=== PATIENT | female | born 1990 | race American Indian/Alaskan Native ===

== ENCOUNTER 2017-01-28 05:21 | Emergency (ER) | payer SELFPAY ==
--- NOTE | 2017-01-28 08:00 | Emergency Department Report ---
ED ENT HPI - General Chief complaint: Sore Throat Stated complaint: THROAT PAIN Time Seen by Provider: 01/28/17 07:21 Source: patient Mode of arrival: Ambulatory Limitations: No Limitations - History of Present Illness Initial comments: PT c/o Sore throat. PT states she has had a sore throat x 2 days, started while she was at work. 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 PT states it hurts worse when she swallows so she has been eating less. PT also states that she might be . complaint: sore throat Onset/Timin -: Gradual, days(s) Location: throat Severity scale (0 -10): 10 Quality: constant Consistency: constant Improves with: none Worsens with: swallowing, eating Associated Symptoms: fever (subjective ), pain with swallowing, sore throat. denies: cough, discharge from ear - Related Data Previous Rx's Medication Instructions Recorded Last Taken Type Acetaminophen/Codeine [Tylenol #3] 1 tab PO Q6H PRN #7 tab 01/28/17 Unknown Rx Amoxicillin 500 mg PO BID #20 capsule 01/28/17 Unknown Rx Allergies Allergy/AdvReac Type Severity Reaction Status Date / Time No Known Allergies Allergy Verified 09/15/15 05:04 ED Dental HPI - General Chief complaint: Sore Throat Stated complaint: THROAT PAIN Time Seen by Provider: 01/28/17 07:21 Source: patient Mode of arrival: Ambulatory Limitations: No Limitations - Related Data Previous Rx's Medication Instructions Recorded Last Taken Type Acetaminophen/Codeine [Tylenol #3] 1 tab PO Q6H PRN #7 tab 01/28/17 Unknown Rx Amoxicillin 500 mg PO BID #20 capsule 01/28/17 Unknown Rx Allergies Allergy/AdvReac Type Severity Reaction Status Date / Time No Known Allergies Allergy Verified 09/15/15 05:04 ED Review of Systems ROS: Stated complaint: THROAT PAIN Other details as noted in HPI Comment: All other systems reviewed and negative Constitutional: fever ENT: throat pain, congestion. denies: ear pain, dental pain Respiratory: no symptoms reported. denies: cough Gastrointestinal: denies: abdominal pain, nausea, vomiting Genitourinary: other (pt thinks she might be ). denies: dysuria ED Past Medical Hx - Past Medical History Previous Medical History?: No - Surgical History Past Surgical History?: No - Social History Smoking Status: Heavy Tobacco Smoker Substance Use Type: None - Medications Home Medications: Home Medications Medication Instructions Recorded Confirmed Last Taken Type Acetaminophen/Codeine [Tylenol #3] 1 tab PO Q6H PRN #7 tab 01/28/17 Unknown Rx Amoxicillin 500 mg PO BID #20 capsule 01/28/17 Unknown Rx ED Physical Exam - General Limitations: No Limitations General appearance: alert, in no apparent distress - Head Head exam: Present: atraumatic, normocephalic, normal inspection - Eye Eye exam: Present: normal appearance, PERRL, EOMI, conjunctival injection - ENT ENT exam: Present: mucous membranes moist, TM's normal bilaterally, normal external ear exam - Expanded ENT Exam Expanded Mouth exam: Present: normal external inspection. Absent: drooling, trismus Throat exam: Positive: tonsillar erythema, tonsillar exudate (small amount of exudate on the R tonsil). Negative: tonsillomegaly - Neck Neck exam: Present: normal inspection, tenderness, full ROM, lymphadenopathy - Respiratory Respiratory exam: Present: normal lung sounds bilaterally. Absent: respiratory distress, chest wall tenderness - Cardiovascular Cardiovascular Exam: Present: regular rate, normal rhythm, normal heart sounds - GI/Abdominal GI/Abdominal exam: Present: soft. Absent: tenderness - Extremities Exam Extremities exam: Present: normal inspection, full ROM - Back Exam Back exam: Present: normal inspection, full ROM. Absent: tenderness, CVA tenderness (R), CVA tenderness (L) - Neurological Exam Neurological exam: Present: alert, oriented X3, normal gait - Psychiatric Psychiatric exam: Present: normal affect, normal mood - Skin Skin exam: Present: warm, dry, intact, normal color ED Course Vital Signs 01/28/17 01/28/17 06:03 08:55 Temperature 98.2 F 99.0 F Pulse Rate 85 77 Respiratory 16 16 Rate Blood Pressure 105/71 123/79 [Right] O2 Sat by Pulse 100 100 Oximetry - Reevaluation(s) Reevaluation #1: 01/28/17 08:01 PT aware of plan of care. PT has no questions at this time. Reevaluation #2: 01/28/17 08:42 PT aware lab results. PT with exudative pharyngitis, will treat empirically for strep pharyngitis. PT verbalizes understanding. PT has no questions at this time. - Pulse Oximetry Interpretation Digit-Finger Initial Pulse Oximetry Readin Actions Taken: none ED Medical Decision Making - Lab Data Labs 01/28/17 07:41 HCG, Qual Negative - Differential Diagnosis , strep pharyngitis, viral uri Critical Care Time: No Critical care attestation.: If time is entered above; I have spent that time in minutes in the direct care of this critically ill patient, excluding procedure time. ED Disposition Clinical Impression: Exudative pharyngitis Disposition: - TO HOME OR SELFCARE Is pt being admited?: No Does the pt Need Aspirin: No Condition: Stable Instructions: Strep Throat (ED) Additional Instructions: No driving or ETOH if you need to take Tylenol #3 for your pain You can also take OTC Motrin for your pain Follow up with PCP in 3-5 days finish the entire course of antibiotics Return to the ED if worsening or concerns Increase fluids Prescriptions: Acetaminophen/Codeine [Tylenol #3] 1 tab PO Q6H PRN #7 tab PRN Reason: Pain , Severe (7-10) Amoxicillin 500 mg PO BID #20 capsule Referrals: PRIMARY CARE, [Primary Care Provider] - 3-5 Days Forms: Work/School Release Form(ED) Time of Disposition: 08:45
[2017-01-28] MEDS ORDERED: TRIMOX PO ONE (08:41)
[2017-01-28] MEDS ORDERED: NORCO 5/325 PO ONE (08:41)
[2017-01-28 08:56] VITALS: BP 123/79
== END 2017-01-28 08:56 | disposition home or self-care (01) ==
LOC: ED 05:21
DX: J02.9 Acute pharyngitis, unspecified (principal); F17.210 Nicotine dependence, cigarettes, uncomplicated
CPT/HCPCS: 36415; 84703; 87116; 87430; 99283

== ENCOUNTER 2020-10-18 06:55 | Inpatient (IN) | payer OTHER ==
[2020-10-18 10:14] LABS: Hemoglobin 13.1 gm/dl (10.1-14.3); Mean Corpuscular HGB Conc 35 % (30-34); Mean Corpuscular Volume 94 fl (79-97); Platelet Count 208 K/mm3 (140-440); Red Blood Count 4.03 M/mm3 (3.65-5.03); Red Cell Distribution Width 13.3 % (13.2-15.2)
[2020-10-18] MEDS ORDERED: OXYTOCIN DRIP 30 UNITS/500 ML BAG IV SCH ×2 (10:30)
[2020-10-18] MEDS ORDERED: MINERAL OIL 30 ML ORAL LIQD PO PRN (11:00)
[2020-10-18] MEDS ORDERED: AMPICILLIN/NS 2 GM/100 ML 2 GM/100 ML BAG IV SCH (11:00)
[2020-10-18] MEDS ORDERED: TERBUTALINE 1 MG/1 ML INJ SUB-Q PRN (11:00)
[2020-10-18] MEDS ORDERED: LIDOCAINE (2%) 20 MG/1 ML VIAL 20 ML MDV INFILTRATI SCH (11:00)
[2020-10-18] MEDS ORDERED: ePHEDrine SULFATE 50 MG/1 ML INJ IV PRN ×2 (11:00→17:23)
[2020-10-18] MEDS: LACTATED RINGERS 1,000 ML IV SCH ×2 (11:25→18:02)
--- NOTE | 2020-10-18 13:44 | History and Physical Report ---
History of Present Illness Date of examination: 10/18/20 Date of admission: 10/18/2020 Chief complaint: leakage of fluid History of present illness: 30-year-old at 35+6 weeks who presents with gross rupture of membranes. The patient denies any precipitating event to her leakage of fluid. She denies any vaginal bleeding or any pelvic pain Past History - Obstetrical History : 2 Medications and Allergies Allergies Allergy/AdvReac Type Severity Reaction Status Date / Time No Known Allergies Allergy Verified 09/15/15 05:04 Home Medications Medication Instructions Recorded Confirmed Last Taken Type Multivitamin Tablet 1 tab PO DAILY 10/18/20 10/18/20 10/17/20 History Ibuprofen [Motrin] 800 mg PO Q8HR PRN #30 tablet 10/19/20 Unknown Rx Active Meds: Active Medications Ephedrine Sulfate (Ephedrine Sulfate 50 Mg/1 Ml Inj) 10 mg IV Q2M PRN PRN Reason: Hypotension Oxytocin/Sodium Chloride (Pitocin/Ns 30 Unit/500ml) 30 units in 500 mls @ 2 mls/hr IV TITR NATALIE; Protocol Last Admin: 10/18/20 13:00 Dose: 4 ml/hr, 4 mls/hr Documented by: Lactated Ringer's (Lactated Ringers) 1,000 mls @ 125 mls/hr IV DIRECT NATALIE Last Admin: 10/18/20 11:25 Dose: 125 mls/hr Documented by: Oxytocin/Sodium Chloride (Pitocin/Ns 30 Unit/500ml) 30 units in 500 mls @ 40 mls/hr IV TITR NATALIE; Protocol Ampicillin Sodium (Ampicillin/Ns 1 Gm/50 Ml) 1 gm in 50 mls @ 100 mls/hr IV Q4H NATALIE; Protocol Ampicillin Sodium (Ampicillin/Ns 2 Gm/100 Ml) 2 gm in 100 mls @ 100 mls/hr IV ONCE NATALIE; Protocol Stop: 10/18/20 14:00 Lidocaine (Lidocaine (2%) 20 Mg/1 Ml Vial 20 Ml Mdv) 20 ml INFILTRATI ONCE NATALIE Stop: 10/19/20 10:59 Mineral Oil (Mineral Oil 30 Ml Oral Liqd) 30 ml PO QHS PRN PRN Reason: Constipation Terbutaline Sulfate (Terbutaline 1 Mg/1 Ml Inj) 0.25 mg SUB-Q ONCE PRN PRN Reason: Hyperstimulation/Hypertonicity - Vital Signs Vital signs: Vital Signs Pulse BP Pulse Ox 81 129/81 100 10/18/20 07:35 10/18/20 07:35 10/18/20 07:35 Temp Pulse Resp BP Pulse Ox 98.4 F 86 16 129/81 100 10/18/20 10:00 10/18/20 07:45 10/18/20 10:00 10/18/20 07:36 10/18/20 07:45 Results Result Diagrams: 10/18/20 09:50 Abnormal lab results 10/18/20 Range/Units 09:50 MCH 33 H (28-32) pg MCHC 35 H (30-34) % All other labs normal. Assessment and Plan - Patient Problems (1) premature rupture of membranes Current Visit: Yes Status: Acute Plan to address problem: Admit for induction of labor
[2020-10-18] MEDS ORDERED: AMPICILLIN/NS 1 GM/50 ML 1 GM/50 ML BAG IV SCH (15:00)
[2020-10-18] MEDS: AMPICILLIN/NS 1 GM/50 ML 1 GM/50 ML BAG IV SCH ×2 (16:59→21:34)
[2020-10-18] MEDS ORDERED: NALOXONE 2 MG/2 ML INJ IV PRN (17:23)
--- NOTE | 2020-10-18 17:24 | Anesthesia Consultation ---
Anesthesia Consult and Med Hx Date of service: 10/18/20 - Airway Anesthetic Teeth Evaluation: Good ROM Head & Neck: Adequate Mental/Hyoid Distance: Adequate Mallampati Class: Class II Intubation Access Assessment: Probably Good - Pulmonary Exam CTA: Yes - Cardiac Exam Cardiac Exam: RRR - Pre-Operative Health Status ASA Pre-Surgery Classification: ASA2 Proposed Anesthetic Plan: Epidural - Pulmonary Hx Asthma: No - Cardiovascular System Hx Hypertension: No - Central Nervous System Hx Seizures: No Hx Psychiatric Problems: No - Endocrine Hx Renal Disease: No Hx Hypothyroidism: No Hx Hyperthyroidism: No - Hematic Hx Anemia: No Hx Sickle Cell Disease: No - Other Systems Hx Alcohol Use: No Hx Obesity: Yes
--- NOTE | 2020-10-18 17:51 | Progress Note ---
Labor Epidural - Labor Epidural Start Time: 17:25 Stop Time: 17:43 Performed by:: LAINEY HOLGUIN Procedure: Patient is requesting epidural for labor pain. H&P, and labs reviewed. Procedure explained, questions answered, consent obtained. Patient in sitting position with blood pressure cuff and pulse ox on and working. Timeout performed immediately before start of procedure. Sterile chlorahexadine 0.5% prep/drape. 3 mL 1% lidocaine skin wheal at L[3]-L[4]. 18-gauge Tuohy epidural needle advanced to [id number] with saline at 8 cm. Epidural dexmedetomidine [30] mcg administered. Epidural catheter advanced to 13 cm, negative aspiration for blood and csf, negative test dose 3 ml 1.5% lidocaine with epinephrine. Sterile steri-strips and tegaderm applied, followed by tape reinforcement. Patient tolerated procedure well. Anel HENRIQUEZ
[2020-10-18] MEDS ORDERED: fentaNYL-BUPIV 2 MCG/ML-0.125% 200 MCG/100 ML BAG EPIDURAL SCH (18:00)
[2020-10-18] MEDS ORDERED: MAGNESIUM HYDROXIDE (MOM) ORAL LIQD UDC PO PRN (23:02)
[2020-10-18] MEDS ORDERED: ACETAMINOPHEN 325 MG TAB PO PRN (23:02)
[2020-10-18] MEDS ORDERED: PROMETHAZINE 25 MG RECT SUPP PR PRN (23:02)
[2020-10-18] MEDS ORDERED: LANOLIN/ZINC/DIMETHICONE (LANSINOH) 7 GM TP PRN (23:02)
[2020-10-18] MEDS ORDERED: HYDROcodone/ACETAMINOPHEN 5-325 MG TAB PO PRN (23:02)
[2020-10-18] MEDS ORDERED: ONDANSETRON 4 MG/2 ML INJ IV PRN (23:02)
[2020-10-18] MEDS ORDERED: diphenhydrAMINE 25 MG CAP PO PRN (23:02)
[2020-10-18] MEDS ORDERED: PROMETHAZINE 25 MG TAB PO PRN (23:02)
[2020-10-18] MEDS ORDERED: WITCH HAZEL/ GLYCERIN PAD TP PRN (23:02)
--- NOTE | 2020-10-18 23:02 | Procedure Note ---
OB Delivery Note - Delivery Date of Delivery: 10/18/20 Surgeon: CARMINE RINCON Estimated blood loss: other (150ml) - Vaginal Delivery presentation: vertex Delivery position: OA Intrapartum events: labor-<37 weeks, PROM->1hr before delivery Delivery augmentation: pitocin Delivery monitor: external FHT, external uterine Route of delivery: Delivery placenta: spontaneous Delivery cord: nuchal cord, 3 umbilical vessels Episiotomy: none Delivery laceration: none Anesthesia: epidural Delivery comments: The patient progressed to complete complete +1 and post to deliver a live-born female infant with Apgars of 8 and 9. Weight 5lbs 1oz. After delivery of the head there was a nuchal cord that was manually reduced. The shoulders delivered without difficulty. The infant was bulb suction. The cord was clamped and cut and the infant was placed on the patient's abdomen. The placenta delivered spontaneously intact with a three-vessel cord. No lacerations were noted. Estimated blood loss of 150 mL - A at 1 minute: 8 (weight 5lbs 1oz) at 5 minutes: 9 Infant Gender: Female
[2020-10-19] MEDS: IBUPROFEN 600 MG TAB PO SCH ×4 (06:37→21:23)
--- NOTE | 2020-10-19 13:11 | Progress Note ---
Assessment and Plan - Patient Problems (1) premature rupture of membranes Current Visit: Yes Status: Acute Plan to address problem: routine care discharge home Subjective - Subjective Date of service: 10/19/20 Interval history: Patient without complaints. Pain well controlled Patient reports: appetite normal, voiding normally, pain well controlled : doing well Objective - Vital Signs Latest vital signs: Vital Signs Temp Pulse Resp BP BP Pulse Ox 10/19/20 07:56 98.3 F 82 20 126/81 100 10/19/20 06:37 18 10/19/20 05:33 97.9 F 92 H 20 129/84 100 10/19/20 01:00 98.3 F 68 18 124/85 100 10/19/20 00:51 87 100 10/19/20 00:46 99 H 100 10/19/20 00:35 103 H 100 10/19/20 00:30 87 100 10/19/20 00:25 91 H 100 10/19/20 00:20 92 H 100 10/19/20 00:17 92 H 143/83 10/19/20 00:15 94 H 100 10/19/20 00:10 82 100 10/19/20 00:05 76 100 10/19/20 00:02 81 136/87 10/19/20 00:00 80 100 10/18/20 23:55 79 100 10/18/20 23:50 94 H 100 10/18/20 23:47 89 134/82 10/18/20 23:45 91 H 100 10/18/20 23:40 90 100 10/18/20 23:35 83 100 10/18/20 23:32 98 H 130/93 10/18/20 23:30 92 H 100 10/18/20 23:25 96 H 100 10/18/20 23:20 89 100 10/18/20 23:17 96 H 119/77 10/18/20 23:15 94 H 100 10/18/20 23:10 95 H 100 10/18/20 23:05 111 H 100 10/18/20 23:00 113 H 100 10/18/20 22:55 101 H 100 10/18/20 22:51 85 120/76 10/18/20 22:50 83 100 10/18/20 22:45 83 100 10/18/20 22:42 82 85 10/18/20 22:40 110 H 100 10/18/20 22:35 94 H 100 10/18/20 22:30 100 H 99 10/18/20 22:25 88 100 10/18/20 22:21 93 H 119/78 10/18/20 22:20 98 H 100 10/18/20 22:15 105 H 100 10/18/20 22:10 101 H 100 10/18/20 22:05 98 H 100 10/18/20 22:00 102 H 100 10/18/20 21:55 104 H 99 10/18/20 21:50 115 H 100 10/18/20 21:45 101 H 100 10/18/20 21:41 97.4 F L 16 10/18/20 21:40 103 H 100 10/18/20 21:35 100 H 100 10/18/20 21:30 97 H 100 10/18/20 21:25 106 H 100 10/18/20 21:20 88 100 10/18/20 21:15 89 100 10/18/20 21:10 85 100 10/18/20 21:05 82 100 10/18/20 21:03 65 108/61 10/18/20 21:00 83 99 10/18/20 20:55 73 100 10/18/20 20:50 79 99 10/18/20 20:48 70 112/62 10/18/20 20:45 84 100 10/18/20 20:40 80 100 10/18/20 20:35 74 100 10/18/20 20:33 70 126/77 10/18/20 20:30 69 100 10/18/20 20:25 73 100 10/18/20 20:20 72 100 10/18/20 20:19 76 118/74 10/18/20 20:15 71 100 10/18/20 20:10 68 100 10/18/20 20:05 65 100 10/18/20 20:03 77 102/64 10/18/20 20:00 70 100 10/18/20 19:55 70 100 10/18/20 19:50 70 100 10/18/20 19:49 69 104/63 10/18/20 19:45 79 100 10/18/20 19:40 67 100 10/18/20 19:38 70 91 10/18/20 19:35 75 100 10/18/20 19:34 85 117/76 10/18/20 19:30 72 100 10/18/20 19:25 84 100 10/18/20 19:21 97.7 F 18 10/18/20 19:20 71 100 10/18/20 19:19 85 115/81 10/18/20 19:18 67 91 10/18/20 19:15 80 100 10/18/20 19:10 60 99 10/18/20 19:05 70 100 10/18/20 19:04 57 L 135/82 10/18/20 19:01 63 92 10/18/20 19:00 67 96 10/18/20 18:55 65 100 10/18/20 18:50 79 99 10/18/20 18:47 69 131/88 10/18/20 18:45 58 L 100 10/18/20 18:43 58 L 131/84 10/18/20 18:40 90 100 10/18/20 18:39 82 123/80 10/18/20 18:35 58 L 100 10/18/20 18:32 65 115/64 10/18/20 18:30 60 100 10/18/20 18:28 61 123/70 10/18/20 18:25 62 100 10/18/20 18:22 59 L 123/75 10/18/20 18:20 65 100 10/18/20 18:17 60 123/75 10/18/20 18:15 67 100 10/18/20 18:12 61 122/71 10/18/20 18:10 69 99 10/18/20 18:07 64 130/68 10/18/20 18:05 66 132/68 100 10/18/20 18:03 65 151/95 10/18/20 18:01 73 131/83 10/18/20 18:00 73 100 10/18/20 17:59 75 129/80 10/18/20 17:57 76 128/79 10/18/20 17:55 79 135/82 100 10/18/20 17:53 82 137/80 10/18/20 17:51 79 140/82 10/18/20 17:50 86 95 10/18/20 17:49 88 144/90 10/18/20 17:47 84 138/78 10/18/20 17:46 66 91 03/06/21 17:45 86 151/87 99 10/18/20 17:40 89 96 10/18/20 17:35 82 97 10/18/20 17:30 89 100 10/18/20 17:25 92 H 99 10/18/20 17:20 82 100 10/18/20 17:15 74 100 10/18/20 17:10 86 100 10/18/20 17:05 67 100 10/18/20 17:00 71 100 10/18/20 16:55 72 100 10/18/20 16:50 80 98 10/18/20 16:45 70 99 10/18/20 16:40 76 99 10/18/20 16:35 75 99 10/18/20 16:30 98.5 F 70 18 100 10/18/20 16:25 67 100 10/18/20 16:20 84 100 10/18/20 16:15 74 100 10/18/20 16:10 76 98 10/18/20 16:07 81 119/65 10/18/20 16:05 86 98 10/18/20 16:00 81 97 10/18/20 15:55 80 99 10/18/20 15:50 70 99 10/18/20 15:45 88 100 10/18/20 15:40 75 100 10/18/20 15:35 82 99 10/18/20 15:24 78 98 10/18/20 15:19 86 99 10/18/20 15:14 77 99 10/18/20 15:09 84 100 10/18/20 15:04 79 95 10/18/20 14:59 75 99 10/18/20 14:54 83 98 10/18/20 14:49 97 H 98 10/18/20 14:44 87 97 10/18/20 14:39 91 H 99 10/18/20 14:34 79 99 10/18/20 14:29 80 99 10/18/20 14:24 94 H 100 10/18/20 14:19 98 H 99 10/18/20 14:14 79 100 10/18/20 14:09 88 100 10/18/20 14:04 89 100 10/18/20 14:00 106 H 92 10/18/20 13:59 86 100 10/18/20 13:54 88 100 10/18/20 13:49 89 100 Intake and Output 10/18/20 10/19/20 10/19/20 22:59 06:59 14:59 Intake Total 1587.083 240 480 Output Total 550 900 450 Balance 1037.083 -660 30 Intake: IV 877.083 AMPICILLIN/NS 1 GM/50 ML 50 1 gm In 50 ml @ 100 mls/ hr IV Q4H NATALIE Rx#: [id number] Lactated Ringers 1,000 ml 827.083 @ 125 mls/hr IV DIRECT NATALIE Rx#:[id number] Oral 710 240 480 Output: Urine 550 900 450 Indwelling Catheter 550 Void 900 450 Other: Total, Intake Amount 710 240 240 Total, Output Amount 550 600 450 # Voids Void 1 1 2 Estimated Blood Loss 150
--- NOTE | 2020-10-19 13:13 | Discharge Summary ---
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 IOL with . uncomplicated Condition at discharge: Good Disposition: DC-01 TO HOME OR SELFCARE - Discharge Diagnoses (1) premature rupture of membranes Status: Acute Plan - Discharge Medications Prescriptions: Ibuprofen [Motrin] 800 mg PO Q8HR PRN #30 tablet PRN Reason: Pain , Severe (7-10) - Provider Discharge Summary Activity: no sex for 6 weeks, no heavy lifting 4 weeks, no strenuous exercise Diet: routine Instructions: routine Additional instructions: [] Smoking cessation referral if applicable(refer to patient education folder for contact #) [] Refer to [facility] Booklet Call your doctor immediately for: * Fever > 100.5 * Heavy vaginal bleeding ( >1 pad per hour) * Severe persistent headache * Shortness of breath * Reddened, hot, painful area to leg or breast * schedule visit in 4 weeks - Follow up plan
--- NOTE | 2020-10-19 15:24 | Post Anesthesia Evaluation ---
- Post Anesthesia Evaluation Patient Participated: Yes Airway Patent: Yes Stable Respiratory Function: Yes Nausea/Vomiting: No Temp > 96.8F: Yes Pain Manageable: Yes Adequeate Hydration: Yes Anesthesia Complications: No Block Receding Appropriately: Yes
[2020-10-19 19:13] LABS: Hematocrit 31.5 % (30.3-42.9); Hemoglobin 10.9 gm/dl (10.1-14.3)
[2020-10-20] MEDS: IBUPROFEN 600 MG TAB PO SCH ×2 (03:50→10:21)
[2020-10-20 12:55] VITALS: BP 131/86
== END 2020-10-20 13:21 | disposition home or self-care (01) | DRG 775 ==
LOC: TRG 06:55 → APU 06:59 → TRG 08:16 → LD 08:16 → OB 10-19 01:00
PROVIDERS: ADMIT Obstetrics & Gynecology; ATTEND Obstetrics & Gynecology
PROC: 10E0XZZ Delivery of Products of Conception, External Approach (ICD-10-PCS; principal; 2020-10-18)
PROC: 3E0R3BZ Introduction of Anesthetic Agent into Spinal Canal, Percutaneous Approach (ICD-10-PCS; 2020-10-18)
PROC: 00HU33Z Insertion of Infusion Device into Spinal Canal, Percutaneous Approach (ICD-10-PCS; 2020-10-18)
DX: O42.913 Preterm premature rupture of membranes, unspecified as to length of time between rupture and onset of labor, third trimester (principal); O60.14X0 Preterm labor third trimester with preterm delivery third trimester, not applicable or unspecified; Z3A.35 35 weeks gestation of pregnancy; Z37.0 Single live birth; Z20.822 Contact with and (suspected) exposure to COVID-19
CPT/HCPCS: 36415; 59025; 85014; 85018; 85027; 86592; 86850; 86900; 86901; 96360; 96361; 96365; 96366; G0378; A6250; J0290; J2590; J7120; U0003